=== PATIENT | female | born 2000 | race Caucasian/White ===

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

== ENCOUNTER 2018-03-12 23:44 | Emergency (ER) | payer OTHER ==
[~2018-03-12] VITALS: Ht 160 cm; Wt 88.9 kg
[~2018-03-12 23:44] MED LIST changes: +BENZ-6 PO; +CEPH-443 PO; +CETI10CA PO; +FLUC150T PO; -FLUC150T17 PO; +FLUT9.9S NASAL; +HC30CR25 TOP; +IBUP-1542 PO; +SULF1TAB31 PO; +TERC45CR3 VAG
[2018-03-12 23:51] VITALS: Ht 160 cm; Wt 88.9 kg
[2018-03-13] MEDS ORDERED: IBUPROFEN 600 MG TAB PO ONE (02:00)
--- NOTE | 2018-03-13 02:22 | ERD ---
ER Documentation Chief Complaint Chief Complaint R>L inspiratory pain under ribs since ; feels SOB. calm, NAD. no CP. HPI This is a 18-year-old female with a history of anxiety who presents ED with complaints of right anterior lower rib pain that started 2 days ago. Patient states that the pain is constant and waxes and wanes in severity -worsened by deep inspiration and worsened with palpation. Patient denies any fall or injury to account for pain. Patient denies cough, congestion, runny nose, wheezing, sputum production, trouble breathing and all other symptoms. Patient denies PE risk factors including recent surgery/immobilization, smoking, prior hx of DVT, coagulopathy, hx of cancer, exogenous estrogen use, one sided lower extremity swelling, and lower extremity pain ROS All systems reviewed and are negative except as per history of present illness. Medications Home Meds Active Scripts Ibuprofen* (Motrin*) 800 Mg Tab, 800 MG PO Q6, #30 TAB Prov:JOE CANDELARIO PA-C 03/13/18 Terconazole* (Terconazole*) 0.4%-45 Gm Vag Cream..g., 1 APPLIC VAG HS for 7 Days, TUB X 7 DOSES Prov:RASHAD,SONYA 11/16/17 Cephalexin* (Keflex*) 500 Mg Capsule, 500 MG PO Q8, #21 CAP Prov:RASHAD,SONYA 11/16/17 Ibuprofen* (Motrin*) 600 Mg Tab, 600 MG PO Q6H PRN for PAIN AND OR ELEVATED TEMP, #30 TAB Prov:GRANT DOMINGUEZ NP 10/16/17 Cephalexin* (Keflex*) 500 Mg Capsule, 500 MG PO QID for 10 Days, CAP Prov:GRANT DOMINGUEZ NP 10/16/17 Sulfamethoxazole/Trimethoprim* (Bactrim Ds* Tablet) 1 Each Tablet, 1 TAB PO BID, #20 TAB Prov:GRANT DOMINGUEZ NP 10/16/17 Hydrocortisone* Topical (Hydrocortisone* Topical) 2.5%-28.3 Gm Cream..g., 1 APPLIC TOP BID for 5 Days, #1 TUB DO NOT USE FOR MORE THAN 5 DAYS AT A TIME Prov:JOE CANDELARIO PA-C 07/05/17 Ibuprofen* (Motrin*) 600 Mg Tab, 600 MG PO Q6, #30 TAB Prov:FILIBERTO TILLMAN PA-C 02/08/17 Cetirizine Hcl* (Zyrtec*) 10 Mg Capsule, 10 MG PO DAILY, #10 TAB.CHEW Prov:FILIBERTO TILLMAN PA-C 02/08/17 Fluticasone Propionate (Flonase Allergy Relief) 9.9 Ml [place].susp, 1 SPRAY NASAL BID, #1 BOTTLE TO EACH NOSTRIL Prov:FILIBERTO TILLMAN PA-C 02/08/17 Benzonatate* (Tessalon Perle*) 100 Mg Capsule, 100 MG PO Q8H PRN for COUGH, #30 CAP Prov:FILIBERTO TILLMAN PA-C 02/08/17 Ondansetron (Ondansetron Odt) 4 Mg Tab.rapdis, 4 MG PO Q6H PRN for NAUSEA AND/OR VOMITING, #20 TAB Prov:BUDDY BURDEN PA-C 07/18/16 Miconazole Nitrate* (Monistat 3*) 24 Gm Cmb.pf.crm, 1 APPFUL VAG HS for 3 Days, TUB X 3 Prov:KATHIA MACIAS 01/18/16 Fluconazole* (Diflucan*) 150 Mg Tablet, 150 MG PO ONCE, #1 TAB Prov:KATHIA MACIAS 01/18/16 Reported Medications [None] No Conflict Check 05/17/09 Allergies Allergies: Coded Allergies: No Known Allergies (Verified Allergy, Mild, 07/17/16) PMhx/Soc Medical and Surgical Hx: pt denies Medical Hx, pt denies Surgical Hx History of Surgery: No Anesthesia Reaction: No Hx Neurological Disorder: No Hx Respiratory Disorders: No Hx Cardiac Disorders: No Hx Psychiatric Problems: Yes (ANXIETY) Hx Miscellaneous Medical Probl: No Hx Alcohol Use: No Hx Substance Use: Yes (OCCASIONAL MARIJUANA USE) Hx Tobacco Use: No Smoking Status: Never smoker FmHx Family History: No diabetes Physical Exam Vitals Vital Signs Date Temp Pulse Resp B/P (MAP) Pulse Ox O2 O2 Flow FiO2 Time Delivery Rate 03/13/18 36.5 02:06 03/12/18 97.6 83 16 115/57 98 23:51 (76) Physical Exam Physical Exam Vitals signs: Reviewed by me. General: Well developed, well nourished, in no acute distress. Patient is awake and alert. Head: Normocephalic, atraumatic. Eyes: Normal conjunctiva, Pupils PERRLA, EOM intact grossly ENT: Pharynx is clear, Moist mucous membranes, external ears, nose and mouth normal Neck: Supple, no masses, lymphadenopathy or JVD Respiratory: Clear to auscultation bilaterally with no wheezing, rhonchi, rales, no distress Chest: No increased AP diameter, no flail chest, there is mild tenderness palpation along the right anterior ribs near sternum, Cardiovascular: RRR, no murmurs, rubs, or gallops Abdominal: Soft, non-tender, non-distended, no peritoneal signs, [place] sign negative Back: No midline tenderness. No flank tenderness Neurologic: Alert and oriented, moving all extremities, normal speech, no focal weakness, no cerebellar signs. Normal mentation Skin: warm and dry, No rash Psych: Anxious Results 24 hrs Current Medications Medications Dose Sig/Sandy Start Time Status Last (Trade) Ordered Route PRN Stop Time Admin Dose Reason Admin Ibuprofen 600 mg ONCE ONCE 03/13/18 DC 03/13/18 (Motrin) PO 02:00 02:06 03/13/18 02:02 Procedures/MDM EKG, MONITORS, & DIAGNOSTIC IMAGING: EKG read by juanjo: Rate/Rhythm: Regular rate and rhythm at a rate of 78 Intervals: Normal Impression: No evidence of ischemia or arrhythmia No ST elevation, no peak T waves, no widened QRS, no MA interval prolongation, no acute prolongation [place] [id number] Radiology Main Line: [phone] DIAGNOSTIC IMAGING REPORT Patient: EDNA BEAN : 2000 Age: 18 Sex: F MR #: [id number] DOS: 03/13/18 0200 Ordering MD: JOE CANDELARIO PA-C Location: [facility] Room/Bed: PROCEDURE: Chest 2 views. CLINICAL INDICATION: Right rib pain, shortness of breath TECHNIQUE: PA and lateral views of the chest were obtained COMPARISON: None FINDINGS: The lungs are clear. No pleural fluid collections or evidence of a pneumothorax. Cardiac silhouette and mediastinal contours are unremarkable. Regional bones appear intact. No fractures or destructive lesions identified. Soft tissues are unremarkable. IMPRESSION: No acute findings. RPTAT: [facility] Physician Blane Date Time Electronically viewed and signed by Physician Blane on 03/13/2018 02:42 xB/ CC: JOE CANDELARIO PA-C [id number] [place] [address] Radiology Main Line: [phone] DIAGNOSTIC IMAGING REPORT Patient: EDNA BEAN : 2000 Age: 18 Sex: F MR #: [id number] DOS: 03/13/18 0200 Ordering MD: JOE CANDELARIO PA-C Location: [facility] Room/Bed: PROCEDURE: XR ribs and AP chest. CLINICAL INDICATION: Right rib pain, shortness of breath TECHNIQUE: AP chest and AP and oblique views of the bilateral ribs were obtained. COMPARISON: None FINDINGS: Bone mineralization appears normal. There is no evidence of fracture. No osteolytic or osteoblastic lesions are identified. Soft tissues are unremarkable. IMPRESSION: Bilateral ribs are intact. No fracture, destructive lesion or other acute process. RPTAT: [facility] Physician Blane Date Time Electronically viewed and signed by Physician Blane on 03/13/2018 02:44 xB/ CC: JOE CANDELARIO PA-C [id number] ER COURSE: The patient was given ibuprofen The medication was well tolerated and the patient reports improvement in symptoms. The patient was stable throughout ED course. I kept the patient and/or family informed of laboratory and diagnostic imaging results throughout the emergency room course. The patient was promptly evaluated and a treatment plan was devised based on H&P and other data. This plan was discussed with the patient who agreed and had no further questions or concerns prior to discharge. MEDICAL DECISION MAKIN yo complaining of chest wall pain that is worse with deep inspiration and therefore did obtain chest xray and ekg. EKG r unremarkable Chest x-ray is normal. Patient was given Motrin here in the emergency department reported feeling significantly better. Symptoms at this time most consistent with costochondritis. PERC negative. Wells Criteria negative. I have low suspicion for PE, abscess, pleural effusion, pneumothorax, acute coronary syndrome. I do not feel further workup or imaging is required at this time. Pt is afebrile and otherwise well-appearing and vital signs are stable. Pt is not tachycardic and oxygen saturation is above 96%. No evidence of acute myocardial infarction, pneumothorax, pneumonia, cardiac tamponade, Kwjvp-Xkegcygbh-Izans Syndrome, Brugada Syndrome, pulmonary embolism, AAA, aortic dissection, thoracic aortic dissection, endocarditis, myocarditis, pericarditis, cocaine-related ischemia, Boerhaave's syndrome, cardiac dysrhythmias,meningitis, intracranial bleed, seizure, stroke, TIA or other emergent conditions. At this time the patient is stable for discharge and outpatient management. Patient should follow up with their PCP in the next 1-2 days. They may return to the emergency department sooner for any persistent or worsening of symptoms. Patient understood and agreed with the plan. DISPOSITION PLAN: We discussed follow up with the patient's primary care doctor within 24 to 48 hours. Patient counseled regarding my diagnostic impression and care plan. Prior to discharge all questions answered. Pt agrees with treatment plan and understands strict return precautions. Precautionary instructions provided including instructions to return to the ER if not improving or for any worsening or changing symptoms or concerns. SPECIALIST FOLLOW UP RECOMMENDED: None Patient has been advised to follow up with primary care in 1-2 days. Disclaimer: Inadvertent spelling and grammatical errors are likely due to EHR/dictation software use and do not reflect on the overall quality of patient care. Also, please note that the electronic time recorded on this note does not necessarily reflect the actual time of the patient encounter. Departure Diagnosis: Primary Impression: Costochondritis, acute Condition: Stable Patient Instructions: Chest Wall Pain, Costochondritis Referrals: [facility] Additional Instructions: Patient advised to return to the ED immediately for new or worsening symptoms. Patient advised to follow up with primary care provider in the next 24-48 hours. Patient verbalized understanding and agrees with treatment plan and course of action. If patient has no primary care they may follow up with one of the community clinics listed on the following page or one of the options listed below [facility] + [facility] [address] [place] [id number] or [facility] [address] [place] [address] or [facility] [address] [place] [address] JOE CANDELARIO PA-C Mar 13, 2018 02:22
[2018-03-13] MEDS ORDERED: IBUP800T48 PO (03:27)
[2018-03-13 03:30] VITALS: BP 118/59; PULSE 73; RESP 20
== END 2018-03-13 03:36 | disposition home or self-care (01) ==
LOC: FTE 23:44
DX: M94.0 Chondrocostal junction syndrome [Tietze] (principal); R40.2142 Coma scale, eyes open, spontaneous, at arrival to emergency department; R40.2362 Coma scale, best motor response, obeys commands, at arrival to emergency department; R40.2252 Coma scale, best verbal response, oriented, at arrival to emergency department
CPT/HCPCS: 71046; 71110; 93005; Z7502; Z7610

== ENCOUNTER 2018-04-28 14:59 | Emergency (ER) | payer OTHER ==
[~2018-04-28] VITALS: Ht 165.1 cm; Wt 87.3 kg
[~2018-04-28 14:59] MED LIST changes: +IBUP800T48 PO
[2018-04-28 15:25] VITALS: BP 123/56; PULSE 81; RESP 20; Ht 165.1 cm; Wt 87.3 kg
[2018-04-28] MEDS ORDERED: PRED20TA PO (16:50)
--- NOTE | 2018-04-28 16:52 | ERD ---
ER Documentation Chief Complaint Chief Complaint Complains of a cough x 3 days HPI This is a 18-year-old female who states she has had cough congestion sore throat runny nose for over a month. She states he is tried tkvo-rrd-ycqfqlc medications without any relief. She has had no fever. Her cough is dry and worse at night. No nausea or vomiting. No diarrhea. ROS All systems reviewed and are negative except as per history of present illness. Medications Home Meds Active Scripts Prednisone* (Prednisone*) 20 Mg Tab, 60 MG PO DAILY for 5 Days, TAB Prov:BUDDY BURDEN PA-C 04/28/18 Ibuprofen* (Motrin*) 800 Mg Tab, 800 MG PO Q6, #30 TAB Prov:JOE CANDELARIO PA-C 03/13/18 Terconazole* (Terconazole*) 0.4%-45 Gm Vag Cream..g., 1 APPLIC VAG HS for 7 Days, TUB X 7 DOSES Prov:RASHAD,SONYA 11/16/17 Cephalexin* (Keflex*) 500 Mg Capsule, 500 MG PO Q8, #21 CAP Prov:RASHAD,SONYA 11/16/17 Ibuprofen* (Motrin*) 600 Mg Tab, 600 MG PO Q6H PRN for PAIN AND OR ELEVATED TEMP, #30 TAB Prov:GRANT DOMINGUEZ NP 10/16/17 Cephalexin* (Keflex*) 500 Mg Capsule, 500 MG PO QID for 10 Days, CAP Prov:GRANT DOMINGUEZ NP 10/16/17 Sulfamethoxazole/Trimethoprim* (Bactrim Ds* Tablet) 1 Each Tablet, 1 TAB PO BID, #20 TAB Prov:GRANT DOMINGUEZ NP 10/16/17 Hydrocortisone* Topical (Hydrocortisone* Topical) 2.5%-28.3 Gm Cream..g., 1 APPLIC TOP BID for 5 Days, #1 TUB DO NOT USE FOR MORE THAN 5 DAYS AT A TIME Prov:JOE CANDELARIO PA-C 07/05/17 Ibuprofen* (Motrin*) 600 Mg Tab, 600 MG PO Q6, #30 TAB Prov:FILIBERTO TILLMAN PA-C 02/08/17 Cetirizine Hcl* (Zyrtec*) 10 Mg Capsule, 10 MG PO DAILY, #10 TAB.CHEW Prov:FILIBERTO TILLMAN PA-C 02/08/17 Fluticasone Propionate (Flonase Allergy Relief) 9.9 Ml [place].susp, 1 SPRAY NASAL BID, #1 BOTTLE TO EACH NOSTRIL Prov:FILIBERTO TILLMAN PA-C 02/08/17 Benzonatate* (Tessalon Perle*) 100 Mg Capsule, 100 MG PO Q8H PRN for COUGH, #30 CAP Prov:FILIBERTO TILLMAN PA-C 02/08/17 Ondansetron (Ondansetron Odt) 4 Mg Tab.rapdis, 4 MG PO Q6H PRN for NAUSEA AND/OR VOMITING, #20 TAB Prov:BUDDY BURDEN PA-C 07/18/16 Miconazole Nitrate* (Monistat 3*) 24 Gm Cmb.pf.crm, 1 APPFUL VAG HS for 3 Days, TUB X 3 Prov:KATHIA MACIAS 01/18/16 Fluconazole* (Diflucan*) 150 Mg Tablet, 150 MG PO ONCE, #1 TAB Prov:KATHIA MACIAS 01/18/16 Reported Medications [None] No Conflict Check 05/17/09 Allergies Allergies: Coded Allergies: No Known Allergies (Verified Allergy, Mild, 07/17/16) PMhx/Soc History of Surgery: No Anesthesia Reaction: No Hx Neurological Disorder: No Hx Respiratory Disorders: No Hx Cardiac Disorders: No Hx Psychiatric Problems: Yes (ANXIETY) Hx Miscellaneous Medical Probl: No Hx Alcohol Use: No Hx Substance Use: Yes (OCCASIONAL MARIJUANA USE) Hx Tobacco Use: No FmHx Family History: No diabetes Physical Exam Vitals Vital Signs Date Temp Pulse Resp B/P (MAP) Pulse Ox O2 O2 Flow FiO2 Time Delivery Rate 04/28/18 98.2 81 20 123/56 97 15:25 (78) Physical Exam INITIAL VITAL SIGNS: Reviewed by me GENERAL: Awake, alert and oriented x 4, well appearing, nontoxic, speaking in full sentences. No acute distress HEAD: Atraumatic NECK: Supple. No masses. Full range of motion. No meningismus. No midline tenderness. EYES: EOMI. PERRL. EAR: No tenderness over the mastoids bilaterally. No exudates in the canals. TMs nonerythematous. NOSE: Normal nose. THROAT: No tonilar erythema or edema. No exudates. Uvula midline. No kissing tonsils. RESPIRATORY: Clear to auscultation bilaterally. Symmetric chest wall rise. No wheezing or rales. No accessory muscle use. CV: Regular rate and rhythm. No murmurs, rubs, or gallops. ABDOMEN: Soft, non-distended. Nontender. Negative [place]. Negative McBurneys point tenderness. No CVA tenderness bilaterally. No guarding. No rebound. Procedures/MDM This is an otherwise healthy, well appearing patient presenting with uncomplicated URI symptoms, likely viral in etiology. Patient is non-toxic and well hydrated. I have low suspicion for pneumonia or significant bacterial disease. Patient will be treated with outpatient supportive care; no indications for antibiotics at this time. Discharge instructions have included return precautions and close follow up with PMD. Patient counseled regarding my diagnostic impression and care plan. Prior to discharge all questions answered. Pt agrees with treatment plan and understands strict return precautions. Pt is instructed to follow up with primary care provider within 24-48 hours. Precautionary instructions provided including instructions to return to the ER if not improving or for any worsening or ch anging symptoms or concerns. Departure Diagnosis: Primary Impression: Bronchitis Condition: Stable Patient Instructions: Bronchitis, No Antibiotic (Adult) Additional Instructions: Call your primary care doctor TOMORROW for an appointment during the next 1-2 days.See the doctor sooner or return here if your condition worsens before your appointment time. BUDDY BURDEN PA-C Apr 28, 2018 16:52
== END 2018-04-28 16:58 | disposition home or self-care (01) ==
LOC: FTE 14:59
DX: J40 Bronchitis, not specified as acute or chronic (principal)
CPT/HCPCS: 99283

== ENCOUNTER → 2018-10-10 | Emergency (ER) | payer OTHER ==
[~2018-10-10] VITALS: Ht 157.5 cm; Wt 83.6 kg
[~2018-10-10] MED LIST changes: +IBUPROFEN 600 MG TAB PO ONE; +PRED20TA PO
[2018-10-10 00:44] VITALS: BP 119/56; PULSE 76; RESP 16; Ht 157.5 cm; Wt 83.6 kg
== END | disposition home or self-care (01) ==
LOC: FTE 00:42
DX: J03.90 Acute tonsillitis, unspecified (principal)
CPT/HCPCS: 87070; 87880; Z7502; Z7610; 99283

== ENCOUNTER 2018-11-10 19:26 | Emergency (ER) | payer OTHER ==
[~2018-11-10] VITALS: Ht 160 cm; Wt 86.6 kg
[~2018-11-10 19:26] MED LIST changes: -IBUPROFEN 600 MG TAB PO ONE; +PHEN-537 PO
[2018-11-10 19:28] VITALS: Ht 160 cm; Wt 86.6 kg
[2018-11-10] MEDS ORDERED: PHENAZOPYRIDINE 100 MG TAB PO ONE (22:00)
[2018-11-10 23:26] VITALS: BP 118/81; PULSE 62; RESP 18
== END 2018-11-10 23:30 | disposition home or self-care (01) ==
LOC: FTE 19:26
DX: N39.0 Urinary tract infection, site not specified (principal)
CPT/HCPCS: 81001; 84703; 87086; Z7502; Z7610; 99283